=== PATIENT | male | born 2005 | race Caucasian/White ===

== ENCOUNTER 2023-08-11 13:38 | Emergency (ER) | payer OTHER ==
[~2023-08-11] VITALS: Ht 175.3 cm; Wt 63.5 kg
[2023-08-11 13:46] VITALS: BP 103/60; PULSE 56; RESP 19; TEMP 98.1; O2SAT 100
[2023-08-11] MEDS: HYDROcodone/APAP 7.5/325 MG 1 TAB PO ONE (16:16)
[2023-08-11] MEDS: KETOROLAC 30 MG/ML VIAL IM ONE (16:16)
[2023-08-11] MEDS ORDERED: ACET-8905 PO (17:26)
[2023-08-11] MEDS ORDERED: LID5T TP (17:26)
[2023-08-11] MEDS ORDERED: IBUP-2213 PO (17:26)
== END 2023-08-11 17:41 | disposition home or self-care (01) ==
LOC: MED 13:38
DX: S39.012A Strain of muscle, fascia and tendon of lower back, initial encounter (principal); Z79.899 Other long term (current) drug therapy; X58.XXXA Exposure to other specified factors, initial encounter; Y93.89 Activity, other specified; Y92.89 Other specified places as the place of occurrence of the external cause; Y99.8 Other external cause status
CPT/HCPCS: 72100; 73502; 81002; 96372; 99284; J1885